=== PATIENT | male | born 1990 | race African-American/Black ===

== ENCOUNTER 2019-04-03 14:17 | Day surgery (SDC) | payer OTHER ==
[2019-04-03] MEDS ORDERED: MIDAZOLAM 2 MG/2 ML VIAL IVP ONE (14:18)
[2019-04-03] MEDS ORDERED: GLYCOPYRROLATE 1 MG/5 ML VIAL IVP ONE (14:18)
[2019-04-03] MEDS ORDERED: DEXAMETHASONE 4 MG/ML VIAL IVP ONE (14:18)
[2019-04-03] MEDS ORDERED: fentaNYL 100 MCG/2 ML VIAL IVP ONE (14:18)
[2019-04-03] MEDS ORDERED: LACTATED RINGERS 1,000 ML IV ONE ×2 (14:30→16:43)
--- NOTE | 2019-04-03 14:38 | ANESTHESIA ---
Pre-Anesthesia VS, & Labs - Diagnosis right fifth metacarpal fx - Procedure right fifth metacarpal fx repair Height 5 ft 9 in Weight (kg) 69.4 kg Home Medications and Allergies Home Medications: Ambulatory Orders Atovaquone/Proguanil HCl [Malarone 250-100 mg Tablet] 1 each PO 04/02/19 Atovaquone/Proguanil HCl [Malarone 250-100 mg Tablet] 1 each PO 04/02/19 Allergies/Adverse Reactions: Allergies Allergy/AdvReac Type Severity Reaction Status Date / Time No Known Drug Allergies Allergy Verified 04/02/19 14:44 Anes History & Medical History - Anesthetic History Anesthesia Complications: reports: No previous complications Family history of Anesthesia Complications: Denies Family history of Malignant Hyperthermia: Denies - Medical History Cardiovascular: reports: None Pulmonary: reports: None, Other (spontaneous pneumothorax in 2017 had chest tube in place for three days) Gastrointestinal: reports: None Urinary: reports: None Neuro: reports: None Musculoskeletal: reports: None, Other Endocrine/Autoimmune: reports: None Blood Disorders: reports: None Skin: reports: None Smoking Status: Current every day smoker ("cigar a two or month") Psychosocial: reports: No issues indicated - Surgical History General: Other Exam General: Alert, Oriented x3, Cooperative, No acute distress Dental: WNL Mouth Openin Fingerbreadth Neck Mobility: Normal Mallampati classification: II Thyromental Distance: 4-6 cm Respiratory: Lungs clear, Normal breath sounds, No respiratory distress, No accessory muscle use Cardiovascular: Regular rate, Normal S1, Normal S2, No murmurs Abdomen: Normal bowel sounds, Soft, No tenderness, No hepatospenomegaly, No masses Extremities: No clubbing, No cyanosis, No edema, Normal pulses, No tenderness/swelling Neurological: Normal gait, Normal speech, Strength at 5/5 X4 ext, Normal tone, Sensation intact, Cranial nerves 3-12 NL, Reflexes 2+ Mental/Cognitive Status: Alert/Oriented X3, Normal for patient Cognitive Status: Within normal limits Plan Anesthesia Type: General, Other Block Consent for Procedure(s) Verified and Reviewed: Yes Code Status: Attempt Resuscitation ASA classification: 1-Healthy patient Is this case an emergency?: No
[2019-04-03] MEDS ORDERED: CEFAZOLIN SODIUM IN 0.9 % NACL 2 GM/100 ML BAG IV ONE (14:54)
[2019-04-03] MEDS ORDERED: BUPIVACAINE 0.25% PF 30 ML VIAL ONE (14:57)
[2019-04-03] MEDS ORDERED: BUPIVACAINE 0.25% PF 30 ML VIAL SUBQ ONE (16:18)
[2019-04-03] MEDS ORDERED: oxyCODONE 5 MG TABLET PO PRN (18:00)
[2019-04-03] MEDS ORDERED: ONDANSETRON 4 MG/2 ML VIAL IVP PRN (18:00)
--- NOTE | 2019-04-03 18:08 | OPERATIVE REPORT ---
Operative Report - Other Other Information/Narrative: Date of Surgery: 03 April 2019 Pre-Op Diagnosis: Right fifth metacarpal neck fracture, malreduced Procedure: Open reduction and percutaneous fixation of right fifth metacarpal fracture Postop Diagnosis: Same Primary Surgeon: Pal Zarate Secondary Surgeon: None Complications: None EBL: 1 cc Implants: 1.25 mm K wires x2 Postoperative Protocol: Splint and pins in place until 6 weeks. We will check the pins for pin tract infection starting at 4 weeks Indication For Surgery: 29-year-old male sustained the above injury while playing basketball 18 days ago in [place]. He was reduced in [place] and placed into a cast and then medevac to home. He then presented to the clinic and had a rotational deformity. The goal of surgery would be to correct the rotational deformity and allow for healing with minimal complications. The risks, benefits, and alternatives were discussed. Risks include pain, bleeding, infection, damage to nearby structures, numbness, lack of symptom relief, implant complications, nonunion, need for further surgery, DVT, PE, stroke, and . Written consent was obtained. Procedure in Detail: The patient was met in the pre-operative hold area on the day of the procedure. The operative extremity was signed and questions were answered. The patient was brought to the operating room and a general anesthetic was administered. Supine position was used and all bony prominences were padded. Standard prepping and draping was performed. A time out confirmed patient identification, laterality, procedure, allergies, antibiotics, and images. An Esmarch was used to exsanguinate the limb and the tourniquet was elevated to 250 mmHg. Incision was made directly over the fracture sharp dissection was brought down to the tendons. I dissected ulnar to extensor digit he minimi and the extensor digitorum communis. I opened the dorsal soft tissues directly over the fracture and it was visualized. It took significant effort to mobilize the fracture and remove early callus. I disimpacted the dorsal portion of the shaft piece to allow for an anatomic reduction. I was then able to reduce the fracture and it keyed in nicely with excellent interdigitation, this confirmed to me that the rotational reduction was correct. With the reduction performed I then placed 2 lateral recess K wires. The more ulnar one was replaced because it was shooting to volar. X-rays were taken and the reduction was excellent. I stressed the repair by pushing on the distal fragment segment firmly and fixation was strong. I then irrigated the wound copiously and closed the deep layers under the tendon with 2-0 Vicryl, the dermis with 2-0 Vicryl in the skin with 4-0 nylon. A sterile dressing and splint was applied. The wires were bent and protected with cast padding. He was awakened and transition to the recovery room.
[2019-04-03 19:40] VITALS: BP 132/77
== END 2019-04-03 19:30 | disposition home or self-care (01) ==
LOC: SDS 14:17 → MS2 18:15 → SDS 19:30
PROVIDERS: ATTEND Orthopaedic Surgery
PROC: 0PSP04Z Reposition Right Metacarpal with Internal Fixation Device, Open Approach (ICD-10-PCS; principal; 2019-04-03 15:30)
DX: S62.337A Displaced fracture of neck of fifth metacarpal bone, left hand, initial encounter for closed fracture (principal); F17.200 Nicotine dependence, unspecified, uncomplicated

== ENCOUNTER 2020-06-17 09:15 | Outpatient (CLI) | payer OTHER | END 2020-06-17 09:16 | disposition short-term general hospital (02) | LOC: EMS 09:15 | PROVIDERS: ATTEND Surgery | DX: R07.9 Chest pain, unspecified (principal) | CPT/HCPCS: A0425; A0427 ==

== ENCOUNTER 2021-02-15 15:20 | Emergency (ER) | payer OTHER ==
--- NOTE | 2021-02-15 15:43 | ED Physician Documentation ---
History of Present Illness - Stated complaint Stated Complaint: LEFT SIDE CHEST PX, HEADACHE - Chief complaint Chief Complaint: Cardiac - Additonal information Additional information: 31-year-old male presents emergency department for evaluation of 2 days of left- sided chest pain with associated cough and congestion. Febrile here at one 1.5. He did receive his second Covid vaccine on 09 February. Cough is occasionally productive. Mostly dry however he reports that he felt short of breath but did not have pleuritic chest pain. No unilateral leg swelling, recent surgery travel. No hormone use. No personal history of DVT or cancer. Review of Systems Constitutional: reports: Fever, Chills, Myalgias Eyes: reports: Reviewed and negative Nose: reports: Rhinorrhea / runny nose, Congestion Cardiac: reports: Chest pain / pressure. denies: Palpitations, Pedal edema, Calf pain Respiratory: reports: Dyspnea. denies: Cough, Hemoptysis, Wheezing GI: reports: Reviewed and negative : reports: Reviewed and negative PD PAST MEDICAL HISTORY - Past Medical History Cardiovascular: None Respiratory: None, Other Neuro: None Endocrine/Autoimmune: None GI: None : None Psych: None Musculoskeletal: None, Other Derm: None - Past Surgical History General: Other - Present Medications Home Medications: Ambulatory Orders Medication Instructions Recorded Confirmed Atovaquone/Proguanil HCl [Malarone 1 each PO DAILY 04/02/19 04/03/19 250-100 mg Tablet] - Allergies Allergies/Adverse Reactions: Allergies Allergy/AdvReac Type Severity Reaction Status Date / Time No Known Drug Allergies Allergy Verified 02/15/21 15:37 - Social History Does the pt smoke?: No Smoking Status: Never smoker Does the pt drink ETOH?: No Does the pt have substance abuse?: No PD ED PE NORMAL - General General: Alert and oriented X 3, No acute distress - HEENT HEENT: PERRL - Neck Neck: Supple, no meningeal sign - Cardiac Cardiac: RRR, No murmur - Respiratory Respiratory: Clear bilaterally Results - Vitals Vitals: Vital Signs - 24 hr 02/15/21 15:25 Temperature 38.5 C H Heart Rate 91 Respiratory 13 Rate Blood Pressure 121/75 O2 Saturation 98 Oxygen O2 Source Room air - EKG (time done) 1535 Rate: Rate (enter#) (82) Rhythm: NSR [place]: Normal Intervals: Normal NC QRS: Normal Ischemia: ST elevation c/w repol Compare to prior EKG: Old EKG unavailable Computer interpretation: Agree with computer - Labs Labs: Laboratory Tests 02/15/21 02/15/21 02/15/21 15:46 15:46 15:46 WBC 6.5 RBC 4.92 Hgb 15.1 Hct 45.6 MCV 92.7 MCH 30.7 MCHC 33.1 RDW 13.5 Plt Count 228 MPV 10.1 Neut # (Auto) 4.3 Lymph # (Auto) 1.1 L [place] # (Auto) 0.6 Eos # (Auto) 0.5 Baso # (Auto) 0.1 Absolute Nucleated RBC 0.00 Nucleated RBC % 0.0 Sodium 138 Potassium 3.7 Chloride 100 L Carbon Dioxide 28 Anion Gap 10.0 BUN 5 L Creatinine 1.2 Estimated GFR (MDRD) 87 L Glucose 102 H Calcium 9.6 Total Bilirubin 0.5 AST 25 ALT 28 Alkaline Phosphatase 58 Troponin I High Sens 2.7 Total Protein 7.4 Albumin 4.0 Globulin 3.4 Albumin/Globulin Ratio 1.2 Lipase 82 H - Rads (name of study) cxr Radiology: Final report received (No acute cardiopulmonary process.) PD MEDICAL DECISION MAKING - ED course Complexity details: reviewed results, re-evaluated patient, d/w patient ED course: Well-appearing 31-year-old male presents emergency department for evaluation of 2 days left-sided chest pain associated cough fever myalgias chills. He did receive the second COVID-19 vaccine on 09 February. He is requesting a Covid screen today. Cardiopulmonary exam is unremarkable. Chest x-ray without acute focal abnormality. Screening labs are also benign. No troponin elevation. EKG is nonischemic. Patient is PERC/Wells criteria negative I do suspect a viral etiology at this time. Discussed fluids rest and emergent return precautions Departure - Departure Disposition: 01 Home, Self Care Clinical Impression: Fever Qualifiers: Fever type: unspecified Qualified Code(s): R50.9 - Fever, unspecified Chest pain Qualifiers: Chest pain type: unspecified Qualified Code(s): R07.9 - Chest pain, unspecified Condition: Stable Record reviewed to determine appropriate education?: Yes Comments: Keith the chest x-ray for you is normal. There is no pneumonia. Your scree mavis labs are all also unremarkable. I suspect that you have a viral upper respiratory infection causing your chest pain fevers and chills. We are screening you for COVID-19 even though you have received 2 doses of vaccine. We will only call you if the result is positive. I recommend that you go home get plenty rest and fluids. If at any point you feel that your symptoms are worsening, you have fevers greater than 102, you have severe chest pain or shortness of air then please return to the ER for a second evaluation.
[2021-02-15 16:01] LABS: BASOPHILS # (AUTO) 0.1 10^3/uL (0.0-0.1); BASOPHILS % (AUTO) 0.8 %; EOSINOPHILS # (AUTO) 0.5 10^3/uL (0.0-0.7); EOSINOPHILS % (AUTO) 7.4 %; HCT - HEMATOCRIT 45.6 % (42.0-52.0); HGB - HEMOGLOBIN 15.1 g/dL (14.0-18.0); LYMPHOCYTES # (AUTO) 1.1 10^3/uL (1.5-3.5); LYMPHOCYTES % (AUTO) 17.5 %; MEAN CORPUSCULAR HEMOGLOBIN 30.7 pg (27.0-31.0); MEAN CORPUSCULAR HGB CONC 33.1 g/dL (32.0-36.0); MEAN CORPUSCULAR VOLUME 92.7 fL (80.0-94.0); MEAN PLATELET VOLUME 10.1 fL (7.4-11.4); MONOCYTES # (AUTO) 0.6 10^3/uL (0.0-1.0); MONOCYTES % (AUTO) 8.9 %; NEUTROPHILS # (AUTO) 4.3 10^3/uL (1.5-6.6); NEUTROPHILS % (AUTO) 65.2 %; PLT - PLATELET COUNT 228 10^3/uL (130-450); RED BLOOD COUNT 4.92 10^6/uL (4.70-6.10); RED CELL DISTRIBUTION WIDTH 13.5 % (12.0-15.0); WHITE BLOOD COUNT 6.5 x10^3/uL (4.8-10.8)
[2021-02-15 16:05] LABS: ALBUMIN/GLOBULIN RATIO 1.2 (1.0-2.2); BILIRUBIN,TOTAL 0.5 mg/dL (0.2-1.0); CALCIUM 9.6 mg/dL (8.5-10.3); CREATININE 1.2 mg/dL (0.6-1.2); POTASSIUM 3.7 mmol/L (3.5-5.0); TOTAL PROTEIN 7.4 g/dL (6.7-8.2)
--- NOTE | 2021-02-15 16:08 | XRAY Report ---
PROCEDURE: Chest 1 View X-Ray INDICATIONS: chest pain TECHNIQUE: One view of the chest was acquired. COMPARISON: None FINDINGS: Surgical changes and devices: None. Lungs and pleura: No pleural effusions or pneumothorax. Lungs are clear. Mediastinum: Mediastinal contours appear normal. Heart size is normal. Bones and chest wall: No suspicious bony lesions. Overlying soft tissues appear unremarkable. IMPRESSION: No acute pulmonary process. Reviewed by: Clau Kothari MD on 02/15/2021 4:06 PM PDT Approved by: Clau Kothari MD on 02/15/2021 4:06 PM PDT Station ID: [id number]
[2021-02-15 16:36] VITALS: BP 120/89
== END 2021-02-15 16:42 | disposition home or self-care (01) ==
LOC: ED 15:20
DX: R07.9 Chest pain, unspecified (principal); R50.9 Fever, unspecified; Z20.822 Contact with and (suspected) exposure to COVID-19
CPT/HCPCS: 36415; 80053; 83690; 84484; 85025; 93005; 99284

== ENCOUNTER 2021-06-09 13:08 | Outpatient (CLI) | payer OTHER ==
[2021-06-09 14:21] VITALS: BP 139/98
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
== END 2021-06-09 13:09 | disposition home or self-care (01) ==
LOC: SC 13:08
PROVIDERS: ATTEND Nurse Practitioner Family
DX: R06.83 Snoring (principal); G47.8 Other sleep disorders; G47.10 Hypersomnia, unspecified; R41.89 Other symptoms and signs involving cognitive functions and awareness
CPT/HCPCS: 99203; 99212

== ENCOUNTER 2021-06-17 09:23 | Outpatient (CLI) | payer OTHER | END 2021-06-17 09:24 | disposition home or self-care (01) | LOC: SC 09:23 | PROVIDERS: ATTEND Nurse Practitioner Family | DX: R09.02 Hypoxemia (principal); R06.83 Snoring; G47.8 Other sleep disorders; R53.83 Other fatigue; G47.00 Insomnia, unspecified; F32.9 Major depressive disorder, single episode, unspecified | CPT/HCPCS: 95806 ==

== ENCOUNTER 2021-07-03 11:26 | Outpatient (CLI) | payer OTHER ==
--- NOTE | 2021-07-03 12:06 | SLEEP CARE CONSULTATION ---
Information from patient questionnaire entered by Monique Benitez MA. I have reviewed and concur with the information entered by Monique Benitez MA. This document represents the service I personally performed and the decisions made by Donaldo birch Caren J, ARNP. History of Present Illness Service Date and Time: 07/03/2021 1126 Initial [place] Sleepiness Scale score: 8 (2021) Current [place] Sleepiness Scale score: 10 (2021) Additional HPI information: ELLEN RANKIN returns for follow up and results of the recently performed home sleep study. The patient was informed of the following findings: No significant sleep disordered breathing with an average AHI of 1.2 and isamar oxygen saturation of 78%.v I explained the pathophysiology behind obstructive sleep apnea. Patient does not have sleep apnea and was advised how weight gain could increase the risk of developing sleep apnea in the future. Patient has light snoring. Snoring can also be treated with an oral appliance from a dentist. Advised to check insurance coverage. In addition, an ENT evaluation can be do to see if other treatment is indicated. Patient counseled not drink alcohol less than 4 hours before bedtime as it can increase snoring and apnea. Patient was cautioned about risks of drowsy driving until sleepiness symptoms resolve. Patient denies drowsy driving. Sleep Study - Results Type of Sleep Study: Home sleep study (F/U HOMESTUDY) Prior sleep studies: No Polysomnography/Home Sleep Study results: Physician Impression: The quality of the study is good. The length of the study is adequate (> 240 minutes). Please also see the tabulated and graphic data. 1. No significant sleep disordered breathing, with an AHI of 1.2/hr and isamar SaO2 of 78%. During the study, the patient had 6 apneas (6 obstructive, 0 central, 0 mixed) and 3 hypopneas. The longest episode lasted 60.5 seconds. The patient slept mostly supine (supine AHI was 0.9 and non-supine, 3.17). 2. Hypoxemia (ICD-10 R09.02), minimal,, with the lowest oxygen saturation of 78 % and 0.0 minutes with SaO2 under 90%. Baseline oxygen saturation was normal (Average oxygen sa turation was 96%). Allergies and Home Medications Known drug allergies: No (NKA) Drug allergies reviewed: Yes Home medication list reviewed: Yes Allergy and home medication list: Allergies No Known Drug Allergies Allergy (Verified 02/15/21 15:37) Medication: Flonase Review of Systems Review of systems same as previous: Yes (no changes) Physical Exam Vital signs obtained and entered by: FRANCOISE ALVARADO Blood Pressure: 137/95 (LEFT, PULSE 73, RESP 16,) Cuff size: wrist Heart Rate: 69 O2 Saturation: 98 (PAPER MASK) Height: 5 ft 9 in Weight: 150 lb (W/O CLOTHES) Body Mass Index: 22.1 BMI Classification: Healthy weight Impression and Plan Snoring but no significant sleep disordered breathing. Patient advised to maintain a healthy weight to limit snoring as well as apnea risk. An oral appliance can also be used for snoring. This would require a dental consultation. Patient cautioned not to use other online appliances as can cause bite issues. A list of accredited dentists in area and one local dentist who makes oral appliances is available in office. Patient is advised to check if insurance will cover. An ENT consult can also be helpful to determine if any other treatment is an option. * Maintain a healthy weight * Avoid alcohol consumption near bedtime * Return in as needed. Counseling Topics: Weight control Visit Type: In Office Time Spent with Patient (minutes): 10 Provider Statement: I spent 100% of the Face to Face Visit with the patient with greater than 50% spent counseling the patient and coordination of care.
[2021-07-03 12:07] VITALS: BP 137/95
== END 2021-07-03 11:27 | disposition home or self-care (01) ==
LOC: SC 11:26
PROVIDERS: ATTEND Nurse Practitioner Family
DX: R09.02 Hypoxemia (principal)
CPT/HCPCS: 99212